=== PATIENT | female | born 1955 | race Caucasian/White ===

== ENCOUNTER 2017-05-25 09:50 | Inpatient (IN) | payer BC ==
[2017-05-17 16:12] VITALS: BMI 39.9
[~2017-05-25 09:50] MED LIST: ACETAMINOPHEN TAB 500 MG TAB PO ONE; DEXAMETHASONE SOD PHOSPHATE 10 MG/ML 1 ML VIAL IV ONE; MELOXICAM 7.5 MG TAB PO ONE; MIDAZOLAM 2 MG/2 ML VIAL IV PRN; MORPHINE SULFATE 4 MG/ML SYRINGE IV PRN; ONDANSETRON 4 MG/2 ML VIAL IVP ONE; SCOPOLAMINE 1.5MG/72HR PATCH TRANSDERM ONE; TRANEXAMIC ACID 1,000 MG in SODIUM CHLORIDE 0.9% 50 ML IVPB ONE; ceFAZolin IN SWFI 2 GM/20 ML SYRINGE IVP ONE
[2017-05-25] MEDS ORDERED: LIDOCAINE 1% 20 ML VIAL (10MG/ML) FOR IV START INTRADERMA ONE (10:30)
[2017-05-25 10:37] LABS: Glucose,Whole Blood 117 mg/dL (75-99)
[2017-05-25] MEDS: LACTATED RINGERS 1,000 ML IV SCH (10:41)
[2017-05-25] MEDS ORDERED: ROPIVACAINE 1,100 MG, SODIUM CHLORIDE 0.9% 330 ML MISCELLANE PRN ×2 (11:03)
--- NOTE | 2017-05-25 11:04 | P.ONQ ---
Anesthesiology Proc Note - PNB - Peripheral Nerve Block Performed Right Adductor Canal Indication: Acute Post-Operative Pain, Requested by physician (Dr Leblanc) Sedation Type: Sedate with meaningful contact maintained Preparation: Sterile Dressing Position: Supine Catheter: Indwelling Needle Types: Other (see comment) (Matt) Needle Size: 100mm (4") Needle Gauge: 20 Technique: Ultrasound Injectate: 0.5% Ropivacaine (see comment for volume) (20cc) Blood Aspirated: No Pain Paresthesia on Injection Noted: No Resistance on Injection: Normal Events: Uneventful and Well Tolerated
[2017-05-25] MEDS ORDERED: ROPIVACAINE 246.25 MG, EPINEPHrine 0.5 MG, KETOROLAC 30 MG, cloNIDine HCL/PF 80 MCG, WA... MISCELLANE ONE ×5 (11:16)
[2017-05-25] MEDS ORDERED: TRANEXAMIC ACID 1,000 MG/10 ML VIAL ONE (11:22)
[2017-05-25] MEDS ORDERED: MIDAZOLAM 2 MG/2 ML VIAL ONE (11:22)
[2017-05-25] MEDS ORDERED: PROPOFOL 10 MG/ML 20 ML VIAL IV ONE (11:22)
[2017-05-25] MEDS ORDERED: SODIUM CHLORIDE 0.9% 100 ML BAG ONE (11:22)
[2017-05-25] MEDS ORDERED: ceFAZolin 3,000 MG in SODIUM CHLORIDE 0.9% IRRIGATIO 3,000 ML IRRIGATION ONE (12:20)
[2017-05-25] MEDS ORDERED: LACTATED RINGERS 1,000 ML IV ONE ×2 (12:38)
--- NOTE | 2017-05-25 12:52 | P.OP ---
Date of Procedure: 05/25/17 Preoperative Diagnosis: Severe osteoarthritis right knee Postoperative Diagnosis: Severe osteoarthritis right knee Procedure(s) Performed: Right total knee arthroplasty Implants: Hobbs [employer] Nephew Oxinium femoral component size 5 narrow, right Hobbs [employer]hew Violet II right nonporous tibial baseplate size 3 Hobbs [employer] Nephew size 15 mm Legion XLPE dished articular insert, size 3-4 Hobbs [employer]hew Violet II resurfacing patellar component, 29 mm All components were cemented using Shaheen bone cement.. The articulation is Oxinium on polyethylene. Anesthesia: spinal Surgeon: Miguel Angel Leblanc Facilities Locator #1: Raya Mccord Estimated Blood Loss (ml): 50 Pathology: other (Bone and cartilage) Condition: stable Disposition: PACU Indications for Procedure: After failure of conservative treatment we discussed the surgical and nonsurgical treatment options at length. Patient wishes to proceed with a total knee arthroplasty. Complications specific to this procedure were discussed at length, including but not limited to infection, bleeding, stiffness , and nerve injury. Patient is aware of all these complications and informed consent was obtained Operative Findings: The operative findings are consistent with severe osteoarthritis of the right knee Description of Procedure: Patient was seen in the preoperative area consent was reviewed and operative site was marked with a skin marker. An adductor canal pain catheter was placed by anesthesia in the preoperative area. Patient was then brought to the operating room and given preoperative antibiotics intravenously. A spinal anesthetic was administered by the anesthesia department. A tourniquet was placed on the upper thigh and the lower extremity was prepped and draped in usual sterile fashion. A gram of transexamic acid was given. A universal timeout was then performed which confirmed the patient's name, surgical site, ALLERGIES, and consent. The lower extremity was then exsanguinated and tourniquet was inflated to 250 mmHg. A standard and anterior midline approach to the knee was performed. The skin and subcutaneous tissue was dissected down to the patellar tendon. A medial parapatellar arthrotomy was then performed. The knee was then extended, the patellar was everted, and the knee was again flexed. Anterior horns of both menisci were excised, and a release was performed to the posterior medial aspect of the knee. On gross visual inspection, there was complete loss of articular cartilage in the medial and patellofemoral joint spaces. There was also significant cartilage damage in the lateral compartment. There were multiple periarticular osteophytes which were then removed with a Ronguer. The femoral canal was then opened with the appropriate drill, and the intramedullary femoral cutting guide was then placed and set for 4 of valgus. The distal femoral cutting block was then pinned in place, and the distal femur was then cut. The cutting block was then removed and the cut was checked for flatness. Next, the sizing guide was then placed and set for 3 external rotation based off of the epicondylar axis and Whitesides line. After the femur was sized, the appropriate 4-in-1 cutting block was then pinned in place. The anterior condyles were cut without notching. The posterior and chamfer cuts were performed while protecting the collateral ligaments. The cutting block was then removed, and the femoral canal was plugged with autologous bone. Attention was then directed to the tibia. The remaining ACL was removed with a Ronguer, and the tibia was then gently subluxed forward with a large bent knee retractor. Any remaining menisci was excised. The posterior lateral corner was cauterized in order to cauterize the lateral geniculate artery. The extra medullary tibial cutting guide was then placed, set for the appropriate rotation , slope, and depth of resection. The proximal tibia cutting guide was then pinned in place. Proximal tibia was then cut and sized. Next trials were then placed with the appropriate-sized insert. The knee was able to fully extend and flex to 130 and was stable throughout all range of motion. The knee was then extended, patella everted. Patella was then measured, and then using an osteotomy guide, the patella was cut at the appropriate level. The patella was then measured and drilled and the patella trial was then placed. The knee was then taken through range of motion with the patella trial and the patella tracked normally. The knee was then extended patella trial was then removed and the patella was everted. Knee was then flexed and lug holes were drilled through the femoral trial and the femoral trial was then removed. The tibial was then exposed, and the tibial broach guide was then pinned in place after it was set for the appropriate rotation to allow for the most coverage without overhang. The tibia was then reamed and broached. The cut surfaces of bone were then irrigated with pulsatile lavage. The posterior structures were injected with the ropivacaine solution. The knee was also irrigated with Irrisept solution. The components were then opened, the cement was mixed, and the components were then cemented in place. The cement was allowed to harden with the knee in full extension. While the cement was hardening, the remaining soft tissues were then injected with a ropivacaine solution, which consisted of 246.25 mg of ropivacaine, 0.5 mg of epinephrine, 30 mg of Toradol, 80 g of clonidine, and 48.45 mL of sterile water, for a total of 100 mL of fluid injected. After the cemented hardened. The tourniquet was released, and hemostasis was obtained. A second gram of transexamic acid was given. The knee was again irrigated. The knee was again taken through range of motion and found to be stable throughout all range of motion of 0-130 , and the patella tracked normally. The fascia was then closed with #2 strata fix suture. The subcutaneous tissue was closed with 3-0 Vicryl and 3-0 strata fix. Dermabond glue was used for the skin and placed with the knee in flexion. The patient was placed in a sterile silver dressing. Patient was then transferred to recovery room in stable condition. The executive personal assistant HADLEY Shook was required due the complexity surgery and the need for a skilled blood bank assistant. She assisted in positioning, draping, retraction, and closure of the wound.
[2017-05-25] MEDS ORDERED: NA PHOS,M-B/NA PHOS,DI-BA 133 ML ENEMA RECTAL PRN (13:11)
[2017-05-25] MEDS ORDERED: ONDANSETRON 4 MG/2 ML VIAL IVP PRN (13:11)
[2017-05-25] MEDS ORDERED: MAGNESIUM HYDROXIDE 2,400 MG/10 ML CUP PO PRN (13:11)
[2017-05-25] MEDS ORDERED: BISACODYL 10 MG SUPP RECTAL PRN (13:11)
[2017-05-25] MEDS ORDERED: HYDROcodone/APAP 5-325MG 1 EACH TAB PO PRN (13:11)
[2017-05-25] MEDS ORDERED: HYDROmorphone 0.5 MG/0.5 ML SYRINGE IVP PRN ×2 (13:11)
[2017-05-25] MEDS ORDERED: HYDROmorphone 2 MG/ML 1 ML SYRINGE IVP PRN (13:11)
[2017-05-25] MEDS ORDERED: NALOXONE 0.4 MG/ML 1 ML VIAL IV PRN (13:11)
[2017-05-25] MEDS ORDERED: DIAZEPAM 5 MG TAB PO PRN ×2 (13:11)
--- NOTE | 2017-05-25 13:34 | XR ---
Limited right knee HISTORY: Status post right knee arthroplasty 2 views of the right knee Patient is status post right knee arthroplasty. There is anatomic alignment present. Lucency present in the soft tissues compatible with postop state. IMPRESSION: Orthopedic follow-up.
[2017-05-25 13:49] LABS: Glucose,Whole Blood 171 mg/dL (75-99)
[2017-05-25] MEDS: HYDROcodone/APAP 5-325MG 1 EACH TAB PO PRN ×2 (16:24→22:28)
[2017-05-25 17:36] LABS: Glucose,Whole Blood 200 mg/dL (75-99)
[2017-05-25] MEDS ORDERED: ACETAMINOPHEN TAB 325 MG TAB PO PRN (18:08)
[2017-05-25 20:18] LABS: Glucose,Whole Blood 199 mg/dL (75-99)
[2017-05-25] MEDS: ASPIRIN 325 MG TAB PO SCH (20:30)
[2017-05-25] MEDS: ceFAZolin IN SWFI 2 GM/20 ML SYRINGE IVP SCH (20:32)
[2017-05-25] MEDS: SODIUM CHLORIDE 0.9% 1,000 ML IV SCH (20:32)
[2017-05-25] MEDS: metFORMIN 500 MG TAB PO SCH (20:33)
[2017-05-25] MEDS ORDERED: SENNOSIDES-DOCUSATE SODIUM 1 EACH TAB PO SCH (21:00)
[2017-05-25] MEDS: INSULIN ASPART 100 UNIT/ML 1 ML 10 ML VIAL SQ SCH (21:00)
[2017-05-25] MEDS: hydrOXYzine PAMOATE 25 MG CAP PO PRN (22:28)
[2017-05-26] MEDS: SODIUM CHLORIDE 0.9% 1,000 ML IV SCH (04:20)
[2017-05-26] MEDS: ceFAZolin IN SWFI 2 GM/20 ML SYRINGE IVP SCH (04:20)
[2017-05-26] MEDS: HYDROcodone/APAP 5-325MG 1 EACH TAB PO PRN ×2 (04:25→10:14)
[2017-05-26] MEDS: hydrOXYzine PAMOATE 25 MG CAP PO PRN ×2 (04:25→10:15)
[2017-05-26] MEDS ORDERED: LEVOTHYROXINE 75 MCG TAB PO SCH (06:00)
[2017-05-26 06:44] LABS: Basophils # (A) 0.1 k/uL (0-0.2); Basophils % (A) 1 %; Eosinophils # (A) 0.1 k/uL (0-0.7); Eosinophils % (A) 1 %; HCT 36.5 % (34.0-46.0); HGB 11.8 gm/dL (11.4-16.0); Lymphocytes # (A) 2.7 k/uL (1.0-4.8); Lymphocytes % (A) 19 %; MCHC 32.2 g/dL (31.0-37.0); MCV 93.4 fL (80.0-100.0); Mean Platelet Volume 7.4; Monocytes # (A) 0.8 k/uL (0-1.0); Monocytes % (A) 5 %; Neutrophils # (A) 10.8 k/uL (1.3-7.7); Neutrophils % (A) 74 %; Platelet Count 302 k/uL (150-450); RBC 3.91 m/uL (3.80-5.40); RDW 14.5 % (11.5-15.5); WBC 14.7 k/uL (3.8-10.6)
[2017-05-26 07:04] LABS: Glucose,Whole Blood 133 mg/dL (75-99)
--- NOTE | 2017-05-26 07:08 | P.PN ---
Progress Note - Text Progress Note Date: 05/26/17 . Postoperative day # 1 status post , right total knee arthroplasty,, and adductor canal catheter , placed for postoperative analgesia, currently at ropivacaine 0.2% 8 mL per hour and continuous infusion,. There is no erythema , and there is no tenderness, visual analogue scale is 4/10, patient using oral pain medication norco ,for breakthrough pain. Assessment and plan= Acute postoperative pain, adductor canal catheter for pain control, pain is well controlled we'll continue the same management.
[2017-05-26] MEDS: INSULIN ASPART 100 UNIT/ML 1 ML 10 ML VIAL SQ SCH ×2 (08:11→11:56)
[2017-05-26] MEDS: metFORMIN 500 MG TAB PO SCH (08:12)
[2017-05-26] MEDS: ASPIRIN 325 MG TAB PO SCH (08:12)
[2017-05-26] MEDS ORDERED: LORATADINE 10 MG TAB PO SCH (09:00)
[2017-05-26] MEDS ORDERED: MELOXICAM 7.5 MG TAB PO SCH (09:00)
--- NOTE | 2017-05-26 09:31 | P.DS ---
Providers Date of admission: 05/25/17 09:52 Expected date of discharge: 05/26/17 Attending physician: Miguel Angel Leblanc Consults: 05/25/17 13:11 Consult Physician Routine Consulting Provider: Deisi Gutierrez Consult Reason/Comments: medical management Do you want consulting provider notified?: Yes Primary care physician: Masoud Hauser - Discharge Diagnosis(es) (1) Primary osteoarthritis of right knee Current Visit: Yes Status: Acute (2) S/P total knee arthroplasty Current Visit: Yes Status: Acute Hospital Course: This is a 61-year-old female with known history of degenerative arthritis of the right knee. The patient presents for evaluation. After discussion and consideration patient elects to proceed with total knee arthroplasty. The patient is seen preoperatively by Dr. Leblanc and cleared for surgery. Patient is admitted to [facility] on 05/25/2017 for total knee arthroplasty. The procedures performed without complication or sequelae. The patient is doing well postoperatively. Labs and vital signs are stable on day of discharge. On day of discharge patient's knee incision is healing well. There is minimal erythema. There is no drainage noted at this time. There is minimal soft tissue swelling to the knee. Patient has full foot and ankle motion without difficulty or pain. Neurovascular status to the right lower extremity is intact. Patient is discharged home in good condition. Please see med rec for accurate list of home medications. Plan - Discharge Summary Discharge Rx Participant: Yes New Discharge Prescriptions: New Aspirin 325 mg PO BID #60 tab HYDROcodone/APAP 5-325MG [[place] 5-325] 1 - 2 tab PO Q4-6H PRN #90 tab PRN Reason: Pain Sennosides [Senokot] 1 tab PO BID #60 tablet No Action Multivitamins, Thera [Multivitamin (formulary)] 1 tab PO DAILY Acetaminophen Tab [Tylenol Tab] 650 mg PO Q4H PRN PRN Reason: Pain Ibuprofen [Advil] 400 mg PO Q6HR PRN PRN Reason: Pain metFORMIN HCL 1,000 mg PO BID Levothyroxine Sodium [Synthroid] 75 mcg PO DAILY Loratadine [Claritin] 10 mg PO DAILY metFORMIN HCL 1,000 mg PO BID Pravastatin Sodium [Pravachol] 10 mg PO DAILY Discharge Medication List Acetaminophen Tab [Tylenol Tab] 650 mg PO Q4H PRN 05/17/17 [History] Ibuprofen [Advil] 400 mg PO Q6HR PRN 05/17/17 [History] Levothyroxine Sodium [Synthroid] 75 mcg PO DAILY 05/17/17 [History] Loratadine [Claritin] 10 mg PO DAILY 05/17/17 [History] Multivitamins, Thera [Multivitamin (formulary)] 1 tab PO DAILY 05/17/17 [History ] metFORMIN HCL 1,000 mg PO BID 05/17/17 [History] metFORMIN HCL 1,000 mg PO BID 05/24/17 [History] Pravastatin Sodium [Pravachol] 10 mg PO DAILY 05/25/17 [History] Aspirin 325 mg PO BID #60 tab 05/26/17 [Rx] HYDROcodone/APAP 5-325MG [[place] 5-325] 1 - 2 tab PO Q4-6H PRN #90 tab 05/26/17 [ Rx] Sennosides [Senokot] 1 tab PO BID #60 tablet 05/26/17 [Rx] Follow up Appointment(s)/Referral(s): Miguel Angel Leblanc DO [Doctor of Osteopathic Medicine] - 2 Weeks Ambulatory/Diagnostic Orders: Continuous Passive Motion (CPM) Machine [DME.AMB1] Time Frame: 3 Weeks, Location : Determined By Patient Activity/Diet/Wound Care/Special Instructions: Weightbearing as tolerated with a walker CPM 5-6h daily Leave dressing intact. May be removed by home care nurse in 7 days, 06/01/2017. May shower with dressing on. [facility] with questions or concerns [phone] Discharge Disposition: HOME WITH HOME HEALTH SERVICES
[2017-05-26 11:16] VITALS: BP 117/72; PULSE 75; RESP 16; TEMP 97.8
[2017-05-26 11:30] LABS: Glucose,Whole Blood 117 mg/dL (75-99)
[2017-05-26] MEDS: LACTATED RINGERS 1,000 ML IV SCH (11:55)
[2017-05-26] MEDS ORDERED: MULTIVITAMINS, THERA 1 EACH TAB PO SCH (12:00)
--- NOTE | 2017-05-26 12:45 | P.CONS ---
History of Present Illness - Reason for Consult Recommendations regarding type 2 diabetes mellitus - History of Present Illness Patient is admitted for right total knee arthroplasty clinically doing well did pass gas pain is well-controlled no overnight events patient denied any fever chills nausea vomiting abdominal pain patient uses metformin at home for the type 2 diabetes mellitus blood sugars are well controlled with that patient was resumed back on this medication. Review of Systems REVIEW OF SYSTEMS: CONSTITUTIONAL: No fever, no malaise, no fatigue. HEENT: No recent visual problems or hearing problems. Denied any sore throat. CARDIOVASCULAR: No chest pain, orthopnea, PND, no palpitations, no syncope. PULMONARY: No shortness of breath, no cough, no hemoptysis. GASTROINTESTINAL: No diarrhea, no nausea, no vomiting, no abdominal pain. Normoactive bowel sounds. NEUROLOGICAL: No headaches, no weakness, no numbness. HEMATOLOGICAL: Denies any bleeding or petechiae. GENITOURINARY: Denies any burning micturition, frequency, or urgency. MUSCULOSKELETAL/RHEUMATOLOGICAL: Denies any joint pain, swelling, or any muscle pain. ENDOCRINE: Denies any polyuria or polydipsia. The rest of the 14-point review of systems is negative. Past Medical History Past Medical History: Cancer, Diabetes Mellitus, GERD/Reflux, Hyperlipidemia, Osteoarthritis (OA), Sleep Apnea/CPAP/BIPAP Additional Past Medical History / Comment(s): C PAP MACHINE, SKIN CANCER History of Any Multi-Drug Resistant Organisms: None Reported Past Surgical History: Bladder Surgery, Cholecystectomy Additional Past Surgical History / Comment(s): COLONOSCOPY, D&C Past Anesthesia/Blood Transfusion Reactions: No Reported Reaction Past Psychological History: No Psychological Hx Reported Smoking Status: Never smoker Past Alcohol Use History: Rare Past Drug Use History: None Reported - Past Family History Brother(s) Family Medical History: Cancer Additional Family Medical History / Comment(s): SKIN CANCER Medications and Allergies Home Medications Medication Instructions Recorded Confirmed Type Acetaminophen Tab [Tylenol Tab] 650 mg PO Q4H PRN 05/17/17 05/25/17 History Ibuprofen [Advil] 400 mg PO Q6HR PRN 05/17/17 05/25/17 History Levothyroxine Sodium [Synthroid] 75 mcg PO DAILY 05/17/17 05/25/17 History Loratadine [Claritin] 10 mg PO DAILY 05/17/17 05/25/17 History Multivitamins, Thera [Multivitamin 1 tab PO DAILY 05/17/17 05/25/17 History (formulary)] metFORMIN HCL 1,000 mg PO BID 05/17/17 05/25/17 History metFORMIN HCL 1,000 mg PO BID 05/24/17 05/25/17 History Pravastatin Sodium [Pravachol] 10 mg PO DAILY 05/25/17 05/25/17 History Aspirin 325 mg PO BID #60 tab 05/26/17 Rx HYDROcodone/APAP 5-325MG [[place] 1 - 2 tab PO Q4-6H PRN #90 tab 05/26/17 Rx 5-325] Sennosides [Senokot] 1 tab PO BID #60 tablet 05/26/17 Rx Allergies Allergy/AdvReac Type Severity Reaction Status Date / Time No Known Allergies Allergy Verified 05/25/17 13:58 Physical Exam Vitals: Vital Signs Temp Pulse Pulse Pulse Resp BP Pulse Ox 05/26/17 07:00 97.8 F 75 16 117/72 93 L 05/26/17 01:18 97.5 F L 67 20 125/67 95 05/25/17 19:00 98.1 F 87 16 141/69 95 05/25/17 16:17 90 16 160/63 95 05/25/17 15:15 89 16 145/75 94 L 05/25/17 15:00 83 16 139/78 94 L 05/25/17 14:45 78 16 130/67 95 05/25/17 14:30 81 16 127/62 94 L 05/25/17 14:15 77 16 127/61 93 L 05/25/17 13:58 77 16 120/59 94 L 05/25/17 13:43 74 16 127/63 91 L 05/25/17 13:28 73 16 128/62 93 L 05/25/17 13:13 98 F 75 16 130/66 95 Intake and Output 05/25/17 05/26/17 05/26/17 22:59 06:59 14:59 Intake Total 1440 220 Output Total 200 Balance 1240 220 Intake: IV 200 Intake, IV Titration 260 Amount Sodium Chloride 0.9% 1, 260 000 ml @ 65 mls/hr IV . [id number] [facility] Rx#:[id number] Oral 980 220 Output: Urine 200 Other: Voiding Method Bedpan # Voids 1 1 Weight 108.862 kg PHYSICAL EXAMINATION: GENERAL: The patient is alert and oriented x3, not in any acute distress. Well developed, well nourished. HEENT: Pupils are round and equally reacting to light. EOMI. No scleral icterus. No conjunctival pallor. Normocephalic, atraumatic. No pharyngeal erythema. No thyromegaly. CARDIOVASCULAR: S1 and S2 present. No murmurs, rubs, or gallops. PULMONARY: Chest is clear to auscultation, no wheezing or crackles. ABDOMEN: Soft, nontender, nondistended, normoactive bowel sounds. No palpable organomegaly. MUSCULOSKELETAL: No joint swelling or deformity. EXTREMITIES: No cyanosis, clubbing, or pedal edema. NEUROLOGICAL: Gross neurological examination did not reveal any focal deficits. SKIN: No rashes. Results CBC & Chem 7: 05/26/17 06:15 Labs: Abnormal Lab Results - Last 24 Hours (Table) 05/25/17 05/25/17 05/25/17 Range/Units 13:46 17:34 20:15 WBC (3.8-10.6) k/uL Neutrophils # (1.3-7.7) k/uL POC Glucose (mg/dL) 171 H 200 H 199 H (75-99) mg/dL 05/26/17 05/26/17 05/26/17 Range/Units 06:15 07:01 11:28 WBC 14.7 H (3.8-10.6) k/uL Neutrophils # 10.8 H (1.3-7.7) k/uL POC Glucose (mg/dL) 133 H 117 H (75-99) mg/dL Assessment and Plan Plan: - leukocytosis patient does not have any signs or symptoms of sepsis at this point of time she is otherwise clinically doing well no further evaluation is necessary and that leukocytosis is reactive secondary to right knee arthroplasty. Patient can be discharged from medical perspective -Type 2 diabetes mellitus well controlled blood sugars with metformin no change in her regimen is being made at this point of time patient will follow with PCP regarding this. -Hyperlipidemia -sleep apnea uses CPAP machine at home. -Right knee arthroplasty postoperative management pain management and due to prophylaxis per primary service For letting me but is pending this patient's care her discharge medication reconciliation was reviewed and patient is okay to be discharged from medical perspective
[2017-05-26 14:15] LABS: Hemoglobin A1C 7.1 % (4.0-6.0)
[2017-05-26] MEDS ORDERED: PRAVASTATIN SODIUM 20 MG TAB PO SCH (21:00)
== END 2017-05-26 14:57 | disposition home health service (06) | DRG 470 ==
LOC: 2ORMAIN 09:52 → 3SUR 15:06
PROVIDERS: ADMIT Orthopaedic Surgery; ATTEND Orthopaedic Surgery
PROC: 0SRC069 Replacement of Right Knee Joint with Oxidized Zirconium on Polyethylene Synthetic Substitute, Cemented, Open Approach (ICD-10-PCS; principal; 2017-05-25 12:10)
DX: M17.11 Unilateral primary osteoarthritis, right knee (principal); E11.9 Type 2 diabetes mellitus without complications; E78.5 Hyperlipidemia, unspecified; G47.30 Sleep apnea, unspecified; G89.18 Other acute postprocedural pain; K21.9 Gastro-esophageal reflux disease without esophagitis; Z79.82 Long term (current) use of aspirin; Z79.84 Long term (current) use of oral hypoglycemic drugs; Z79.899 Other long term (current) drug therapy; Z80.8 Family history of malignant neoplasm of other organs or systems; Z85.828 Personal history of other malignant neoplasm of skin; Z79.1 Long term (current) use of non-steroidal anti-inflammatories (NSAID); Z79.890 Hormone replacement therapy
CPT/HCPCS: 83036; 85025; 88300